=== PATIENT | female | born 1975 | race African-American/Black ===

== ENCOUNTER 2023-07-16 10:58 | Emergency (ER) | payer OTHER ==
[2023-07-16 11:19] VITALS: BP 137/79; PULSE 65; RESP 18; TEMP 98.6; BMI 39.4
[2023-07-16] MEDS ORDERED: MAG HYDROX/AL HYDROX/SIMETH 30 ML UNIT-DOSE CUP PO ONE (12:01)
[2023-07-16] MEDS ORDERED: FAMOTIDINE 20 MG TABLET PO ONE (12:01)
[2023-07-16] MEDS ORDERED: KETOROLAC TROMETHAMINE 30 MG/1 ML VIAL IVPUSH ONE (12:16)
[2023-07-16] MEDS ORDERED: KETOROLAC TROMETHAMINE 30 MG/1 ML VIAL ONE (12:30)
[2023-07-16 12:45] LABS: BASO % 0.6 % (0-2.0); EOS % 3.1 % (0-4.5); HEMATOCRIT 36.7 % (32.4-45.2); HEMOGLOBIN 11.8 GM/dL (10.7-15.3); MCH 30.2 pg (25.7-33.7); MEAN CELL VOLUME 94.4 fl (80-96); MEAN PLT VOLUME 9.8 fl (7.5-11.1); MONO % 11.7 % (3.8-10.2); NEUT % 48.6 % (42.8-82.8); PLATELET COUNT 255 10^3/uL (134-434); RBC 3.89 M/mm3 (3.60-5.2); RDW 12.9 % (11.6-15.6); WHITE BLOOD COUNT 6.3 K/mm3 (4.0-10.0)
[2023-07-16 13:28] LABS: POTASSIUM 4.6 mmol/L (3.5-5.1)
[2023-07-16 13:30] LABS: CALCIUM 8.7 mg/dL (8.5-10.1)
[2023-07-16 13:31] LABS: ALBUMIN 3.4 g/dl (3.4-5.0); BLOOD UREA NITROGEN 13.2 mg/dL (7-18)
[2023-07-16 13:34] LABS: CREATININE 0.9 mg/dL (0.55-1.3)
[2023-07-16 13:35] LABS: TOT PROT 7.1 g/dl (6.4-8.2)
[2023-07-16 13:36] LABS: BILIRUBIN,TOTAL 0.3 mg/dL (0.2-1)
== END 2023-07-16 14:32 | disposition home or self-care (01) ==
LOC: JER 10:58
PROC: 3E0333Z Introduction of Anti-inflammatory into Peripheral Vein, Percutaneous Approach (ICD-10-PCS; principal; 2023-07-16)
DX: R07.89 Other chest pain (principal)
CPT/HCPCS: 36415; 80053; 82550; 84484; 84703; 85025; 93005; 93010; 99284-25